=== PATIENT | male | born 1965 | race Caucasian/White ===

== ENCOUNTER → 2016-08-27 | Outpatient (CLI) | payer BC ==
--- NOTE | 2016-08-27 14:21 | DIAGNOSTIC IMAGING REPORT ---
LEFT NECK ULTRASONOGRAPHY CLINICAL HISTORY: Left perimandibular soft tissue mass COMPARISON STUDY: No previous studies for comparison. FINDINGS: A targeted ultrasound to the area of clinical concern was performed. No ultrasonographic masses are visualized. If a clinically suspicious mass is repalpated, then additional imaging or fine-needle aspiration biopsy should be considered in follow-up IMPRESSION: No ultrasonographically visible masses were identified. If a clinically suspicious mass is repalpated, then CT scanning or fine-needle aspiration biopsy could be obtained in follow-up. Electronically signed by: Mor Spain M.D. 08/27/2016 2:19 PM Dictated Date/Time: 08/27/2016 2:17 PM
== END | disposition home or self-care (01) ==
LOC: C.ULTR 13:34
PROVIDERS: ATTEND Physician Assistant
DX: M79.9 Soft tissue disorder, unspecified (principal)